=== PATIENT | male | born 1995 | race Caucasian/White ===

== ENCOUNTER 2025-04-19 03:36 | Emergency (ER) | payer BC ==
[~2025-04-19] VITALS: Ht 185.4 cm; Wt 150.0 kg
[2025-04-19 03:41] VITALS: TEMP 98.8
--- NOTE | 2025-04-19 04:35 | Physician Documentation ---
History of Present Illness ~ Chief Complaint: Back Pain Stated Complaint: BACK PAIN Time Seen by MD: 04:35 HPI 29-year-old male, history of chronic back pain and surgery, who presents with back pain He tells me that he had a herniated disc, with significant nerve impingement including bladder changes, requiring emergency surgery. Since that time he has not had severe episodes of back pain, but does intermittently have back pain flares. He normally takes ibuprofen with relief. Over the past week or so he has had gradually worsening symptoms. He went to another ER about a week ago and was prescribed steroids hand a muscle relaxant. He also has been using lidocaine patches. He is out of these medications except for the lidocaine patches. Over the past couple of days it has gotten so bad that he is not able to walk. He arrives to the ER by ambulance. He reports gradually worsening numbness to his left leg which is over the lateral thigh and extends down to the lower leg. No weakness to his legs. He is not able to stand due to pain. No bowel or bladder changes. No fevers. No numbness to his groin Medication Reconciliation Allergies: Coded Allergies: No Known Allergies (Unverified , 04/19/25) Review of Systems Constitutional: Denies: fever Neurological: Reports: left sided numbness Musculoskeletal: Reports: back pain Physical Exam Physical Exam Vital Signs: Temperature: 98.8, Source: Temporal, Heart Rate: 120, Respiratory Rate: 18, BP: 161/104, Pulse Oximetry: 98, Weight: 150.000 Oxygen Flow Rate: 0 Physical Exam General: This is a pleasant and nontoxic appearing young man, mother at bedside Heart: Mild tachycardic, appears regular, normal-appearing peripheral perfusion Lungs: normal work of breathing, normal oxygen saturation on room air Back: The patient has a lidocaine patch over his lower back. He has tenderness on palpation of the midline lower lumbar spine in slight discomfort just lateral on the left side of the spine. Otherwise no focal muscle tenderness Extremities: Warm and well-perfused Left lower extremity: The patient has subjective mild paresthesias on light touch to the left leg diffusely compared to the right. Normal strength. Normal-appearing perfusion. Neuro: Alert and oriented Psychiatric: Calm and cooperative with exam Progress Results/Orders Results/Orders Completed Orders - ADAM ALCALA MD Normal Saline 1000ml (0.9% Sodium Chlori (04/19/25 05:00) Ketorolac Trometh 15mg/Ml Vial (Toradol (04/19/25 05:00) Methylprednisolone Sod Succ (Solumedrol (04/19/25 05:00) Diazepam Inj (Valium Inj) (04/19/25 05:00) Vital Signs 04/19/25 03:41 Temp 98.8 Pulse 120 Resp 18 B/P (MAP) 161/104 Pulse Ox 98 O2 Flow Rate 0 Medical Decision Making Differential Diagnosis Differential includes herniated disc, radiculopathy, cauda equina, muscle spasm Assessment The patient presents with acutely worsening chronic back pain. He also has some numbness to his left leg that has been gradually worsening, but no weakness. No bladder changes or other red flag signs. I doubt cauda equina at this time. He would likely benefit from an MRI given his significant pain and difficulty walking, unfortunately we do not have MRI available at this time. He will be given an IV and IV steroids and pain medicine. Departure Impression: Primary Impression: Lumbar radiculopathy Referrals: NO PRIMARY CARE PROVIDER (PCP) Signature Scribe Signature: abi Attestation: ADAM Rosales MD Apr 19, 2025 04:35
[2025-04-19] MEDS: diazepam inj 5 MG/ML inj. IV ONE (05:16)
[2025-04-19] MEDS: ketorolac trometh 15mg/ml vial 15 MG/ML ML IV ONE (05:16)
[2025-04-19] MEDS: normal saline 1000ML IV soln IVB ONE (05:21)
[2025-04-19] MEDS ORDERED: MELO-100 PO (06:56)
[2025-04-19] MEDS ORDERED: METH-797 PO (06:56)
[2025-04-19 07:41] VITALS: BP 159/102; PULSE 83; RESP 16; O2SAT 97
== END 2025-04-19 07:43 | disposition home or self-care (01) ==
LOC: ER 03:36
DX: M54.16 Radiculopathy, lumbar region (principal); G89.29 Other chronic pain
CPT/HCPCS: 96361; 96374; 96375; 99284; J1885; J2919; J3360; J7030; J7120